=== PATIENT | male | born 1955 | race Caucasian/White ===

== ENCOUNTER 2022-03-13 14:47 | Inpatient (IN) ==
[2022-03-13] MEDS: 0.9 % Sodium Chloride 1,000 ML IV ONE (17:41)
[2022-03-13 17:55] LABS: Bacteria,Urine Few per hpf (None-Few); Bilirubin,Urine Negative (Negative); Blood,Urine Small (Negative); Clarity,Urine Turbid (Clear); Color,Urine Yellow (Yellow); Glucose,Urine (UA) Normal (Normal); Ketones,Urine Negative (Negative); Leukocyte Esterase,Urine Large (Negative); Mucus,Urine Few per lpf (None-Few); Nitrite,Urine Positive (Negative); Protein,Urine 50 mg/dL (Neg-Trace); Renal Epithelial Cells,Urine Few per hpf (None-Few); Specific Gravity,Urine 1.015 (1.010-1.025); Squamous Epithelial Cell,Urine Few per hpf (None-Few); Transitional Epi Cells,Urine Few per hpf (None-Few); Urobilinogen,Urine Normal (Normal); WBC,Urine TNTC per hpf (0-3)
[2022-03-13 17:57] LABS: Basophils % 0.3 %; Eosinophils # 0.2 K/mcL (0.0-0.6); Eosinophils % 1.3 %; Hemoglobin 9.9 g/dL (12.9-16.9); Immature Granulocytes % 0.7 % (0-4); Lymphocytes % 13.2 %; Mean Corpuscular Hemoglobin 30.4 pg (28.0-33.3); Mean Platelet Volume 8.8 fL (9.4-12.4); Monocytes % 6.6 %; Neutrophils # 11.7 K/mcL (1.6-8.9); Platelet Count 340 K/mcL (140-400); Red Blood Count 3.26 M/mcL (4.19-5.50); Red Cell Distribution Width 13.8 % (11.5-14.5); Segmented Neutrophils % 77.9 %; White Blood Count 15.1 K/mcL (4.3-11.1)
[2022-03-13 18:10] LABS: Albumin 4.2 g/dL (3.5-5.7); Bilirubin,Total 0.2 mg/dL (0.3-1.0); Calcium 9.5 mg/dL (8.6-10.3); Globulin 4.3 g/dL (2.4-3.5); Potassium 4.7 mEq/L (3.5-5.1); Total Protein 8.5 g/dL (6.4-8.9)
[2022-03-13] MEDS ORDERED: 0.9 % Sodium Chloride 1,000 ML IV ONE (18:14)
[2022-03-13] MEDS ORDERED: cefTRIAXone 1,000 MG in 0.9 % Sodium Chloride 10 ML IVP ONE (18:14)
[2022-03-13] MEDS ORDERED: Ondansetron 4 MG/2 ML VIAL IVP PRN (19:37)
[2022-03-13] MEDS ORDERED: Naloxone 0.4 MG/ML INJ IVP PRN (19:37)
[2022-03-13] MEDS ORDERED: Acetaminophen 325 MG TABLET PO PRN (19:37)
[2022-03-13] MEDS ORDERED: 0.9 % Sodium Chloride 1,000 ML IVC SCH (19:45)
[2022-03-13] MEDS ORDERED: Dextrose Gel 15 GM/37.5 ML TUBE PO PRN ×2 (19:55)
[2022-03-13] MEDS ORDERED: *HR* Dextrose 50 % in Water (Syg) 50 ML SYRINGE IVP PRN (19:55)
[2022-03-13] MEDS ORDERED: D5% in Water 1,000 ML IVC PRN (19:55)
[2022-03-13 21:50] LABS: Prolactin 7.74 ng/mL (3.00-14.70)
[2022-03-13] MEDS: *HR* Heparin 5,000 UNIT/ML VIAL SQ SCH (23:42)
[2022-03-14] MEDS: Insulin LISPRO 300 UNITS/3 ML VIAL SUBQ SCH ×4 (05:58→17:43)
[2022-03-14 06:38] LABS: Basophils % 0.2 %; Eosinophils # 0.1 K/mcL (0.0-0.6); Eosinophils % 0.9 %; Hematocrit 27.3 % (37.5-50.1); Hemoglobin 8.9 g/dL (12.9-16.9); Immature Granulocytes % 0.6 % (0-4); Lymphocytes # 1.1 K/mcL (0.6-4.6); Lymphocytes % 8.5 %; Mean Corpuscular HGB Conc 32.6 g/dL (31.6-35.5); Mean Corpuscular Hemoglobin 29.8 pg (28.0-33.3); Mean Corpuscular Volume 91.3 fL (83.0-100.0); Mean Platelet Volume 8.9 fL (9.4-12.4); Monocytes # 0.9 K/mcL (0.0-1.3); Neutrophils # 10.5 K/mcL (1.6-8.9); Platelet Count 302 K/mcL (140-400); Red Blood Count 2.99 M/mcL (4.19-5.50); Red Cell Distribution Width 13.8 % (11.5-14.5); Segmented Neutrophils % 82.8 %; White Blood Count 12.7 K/mcL (4.3-11.1)
[2022-03-14 06:45] LABS: INR 1.4; Prothrombin Time 15.2 Seconds (9.4-12.1)
[2022-03-14 07:03] LABS: BUN/Creatinine Ratio 15 (6-26); Blood Urea Nitrogen 22 mg/dL (8-23); Calcium 9.2 mg/dL (8.6-10.3); Carbon Dioxide 18 mEq/L (23-29); Chloride 109 mEq/L (98-107); Glucose 222 mg/dL (70-105); Magnesium 1.6 mg/dL (1.6-2.6); Osmolality,Calculated 296 (280-300); Potassium 4.1 mEq/L (3.5-5.1); Sodium 138 mEq/L (136-145); Troponin I < 0.03 ng/mL (< 0.04)
[2022-03-14] MEDS: *HR* Heparin 5,000 UNIT/ML VIAL SQ SCH ×3 (07:03→21:33)
[2022-03-14 07:24] LABS: Folate 9.7 ng/mL (3.0-16.0)
[2022-03-14] MEDS ORDERED: cefTRIAXone 1,000 MG in Water for inj. (sterile) 10 ML IVP SCH (09:00)
[2022-03-14 10:14] LABS: C-Reactive Protein 198 mg/L (Less than 10); Ferritin 261 ng/mL (20-250); Iron < 10 mcg/dL (65-175); Thyroid Stimulating Hormone 0.976 mcIU/mL (0.340-5.600); Transferrin 260 mg/dL (203-362)
[2022-03-14] MEDS: Cyanocobalamin (B-12) 1,000 MCG/ML VIAL SQ SCH (12:18)
[2022-03-14] MEDS ORDERED: Fluticasone Propionate Nasal 50 MCG/SPRAY BOTTLE NS PRN (14:51)
[2022-03-14] MEDS: 0.9 % Sodium Chloride 1,000 ML IV ONE (17:43)
[2022-03-14] MEDS ORDERED: Insulin DETEMIR 100 UNIT/ML X5UNITS SUBQ SCH (21:00)
[2022-03-14] MEDS: gemfibroziL 600 MG TABLET PO SCH (21:34)
[2022-03-15 01:46] LABS: Basophils % 0.2 %; Eosinophils # 0.4 K/mcL (0.0-0.6); Eosinophils % 3.8 %; Hematocrit 25.3 % (37.5-50.1); Hemoglobin 8.2 g/dL (12.9-16.9); Immature Granulocytes % 0.8 % (0-4); Lymphocytes # 1.6 K/mcL (0.6-4.6); Lymphocytes % 17.5 %; Mean Corpuscular HGB Conc 32.4 g/dL (31.6-35.5); Mean Corpuscular Hemoglobin 29.8 pg (28.0-33.3); Monocytes # 0.5 K/mcL (0.0-1.3); Monocytes % 5.4 %; Neutrophils # 6.6 K/mcL (1.6-8.9); Platelet Count 272 K/mcL (140-400); Red Blood Count 2.75 M/mcL (4.19-5.50); Red Cell Distribution Width 13.6 % (11.5-14.5); Segmented Neutrophils % 72.3 %; White Blood Count 9.2 K/mcL (4.3-11.1)
[2022-03-15 02:00] LABS: Calcium 8.6 mg/dL (8.6-10.3)
[2022-03-15] MEDS: *HR* Heparin 5,000 UNIT/ML VIAL SQ SCH (05:55)
[2022-03-15] MEDS: Insulin LISPRO 300 UNITS/3 ML VIAL SUBQ SCH (07:25)
[2022-03-15] MEDS: gemfibroziL 600 MG TABLET PO SCH (08:47)
[2022-03-15] MEDS: Cyanocobalamin (B-12) 1,000 MCG/ML VIAL SQ SCH (08:48)
[2022-03-15] MEDS ORDERED: atenoloL 50 MG TABLET PO SCH (09:00)
[2022-03-15 10:36] LABS: Estimated Average Glucose 171 mg/dl; Hemoglobin A1C 7.6 %
[2022-03-15 11:09] VITALS: BP 133/75; PULSE 85; TEMP 97.8; O2SAT 96
== END 2022-03-15 11:30 | disposition home or self-care (01) | DRG 872 ==
LOC: EMEROOARM 14:47 → 2NENU 03-14 06:08
PROVIDERS: ADMIT Internal Medicine; ATTEND Internal Medicine